=== PATIENT | female | born 1985 | race Caucasian/White ===

== ENCOUNTER 2017-10-22 19:52 | Emergency (ER) | payer BC, OTHER ==
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
[2017-10-22] MEDS ORDERED: Sodium Chloride 0.9% 1,000 ML IV ONE (21:07)
[2017-10-22] MEDS ORDERED: Ketorolac 30 MG/ML SDV IVPUSH ONE (21:07)
[2017-10-22] MEDS ORDERED: diphenhydrAMINE 50 MG/ML SDV IVPUSH ONE (21:09)
[2017-10-22] MEDS ORDERED: Metoclopramide 10 MG/2 ML SDV IVPUSH ONE (21:09)
[2017-10-22] MEDS ORDERED: HYDROmorphone 0.5 MG/0.5 ML SYRINGE IVPUSH ONE (23:07)
[2017-10-22] MEDS ORDERED: Gentamicin 0.3% Ophth Soln 5 ML Bottle EYELF ONE (23:40)
[2017-10-23] MEDS ORDERED: Ciprofloxacin 0.3% Ophth Soln 2.5 ML Bottle EYELF SCH (01:00)
[2017-10-23] MEDS ORDERED: Gentamicin 0.3% Ophth Soln 5 ML Bottle EYELF SCH (09:00)
== END 2017-10-22 23:46 | disposition home or self-care (01) ==
LOC: JD.ED 19:52
DX: H10.9 Unspecified conjunctivitis (principal); R51 Headache; F17.210 Nicotine dependence, cigarettes, uncomplicated; Z88.1 Allergy status to other antibiotic agents; Z88.2 Allergy status to sulfonamides; Z88.5 Allergy status to narcotic agent; Z79.899 Other long term (current) drug therapy
CPT/HCPCS: 96361; 96374; 96375; 99283; J1170; J1200; J1885; J2765; J7040